=== PATIENT | male | born 1970 | race Caucasian/White ===

== ENCOUNTER 2018-02-16 07:33 | Emergency (ER) | payer OTHER ==
[2018-02-16] MEDS: LIDOCAINE 1% (MDV) 10 ML INJ INFIL (08:38)
[2018-02-16] MEDS: TRIMETHOPRIM/SULFAMETHOX (DS) TAB PO (08:51)
[2018-02-16] MEDS: IBUPROFEN 600 MG TAB PO (08:51)
[2018-02-16] MEDS: LIDOCAINE 1% (MPF) 5 ML VIAL INJ (09:28)
[2018-02-16] MEDS: DEXAMETHASONE 4 MG TAB PO (09:28)
[2018-02-16] MEDS: CEFTRIAXONE 1 GM INJ IM (09:29)
== END 2018-02-16 09:48 | disposition home or self-care (01) ==
LOC: FTE 07:33
DX: L03.113 Cellulitis of right upper limb (principal); F17.210 Nicotine dependence, cigarettes, uncomplicated; W57.XXXA Bitten or stung by nonvenomous insect and other nonvenomous arthropods, initial encounter; Y92.9 Unspecified place or not applicable
CPT/HCPCS: 96372; 99284-25

== ENCOUNTER 2018-12-04 11:22 | Emergency (ER) | payer SELFPAY | END 2018-12-04 11:35 | disposition home or self-care (01) | LOC: E/R 11:22 | DX: T50.7X1A Poisoning by analeptics and opioid receptor antagonists, accidental (unintentional), initial encounter (principal) | CPT/HCPCS: 99283 ==